=== PATIENT | male | born 1950 | race Caucasian/White ===

== ENCOUNTER 2025-05-09 08:47 | Day surgery (SDC) | payer BC, MEDICARE ==
[~2025-05-09 08:47] MED LIST: Sodium Chloride 0.9% 10 ML Syringe FLUSH PRN
[2025-05-09] MEDS ORDERED: Glycopyrrolate 0.2 MG/ML 5 ML MDV IV ONE (08:48)
[2025-05-09] MEDS ORDERED: Propofol 200 MG/20 ML SDV IV ONE (08:48)
[2025-05-09] MEDS: Lactated Ringers 1,000 ML IV SCH (09:52)
== END 2025-05-09 12:00 | disposition home or self-care (01) ==
LOC: FB.SDS 08:47
PROVIDERS: ATTEND Surgery
DX: K63.89 Other specified diseases of intestine (principal); R19.4 Change in bowel habit; I10 Essential (primary) hypertension; I25.10 Atherosclerotic heart disease of native coronary artery without angina pectoris; Z79.82 Long term (current) use of aspirin; Z79.899 Other long term (current) drug therapy; Z87.891 Personal history of nicotine dependence
CPT/HCPCS: 00812; 88305; 99100; A9270-GY; J1596; J2704; J7120